=== PATIENT | female | born 1965 | race Caucasian/White ===

== ENCOUNTER 2025-05-12 12:58 | Emergency (ER) | payer OTHER, SELFPAY ==
[2025-05-12 13:21] VITALS: BP 125/94; PULSE 103; RESP 18; TEMP 36.5; O2SAT 97; BMI 32.6
--- NOTE | 2025-05-12 13:43 | ED_ITS ---
HPI - Abdominal Pain General Date Seen: 05/12/25 Chief Complaint: Abdominal Pain Stated Complaint: Lower LT Abdomen pain Time Seen by Provider: 05/12/25 13:43 Source: patient and RN notes reviewed Mode of arrival: ambulatory Limitations: no limitations History of Present Illness HPI narrative: Patricia is a very pleasant 59-year-old female. Comes to the emergency room for evaluation of left lower quadrant pain. Patient notes that a 48 hours ago she did not feel well had some mild indigestion and some abdominal discomfort but nothing localized. [place] maybe she ate some bad food. She was feeling a a little bit better yesterday but then this morning had increasing left lower quadrant pain. This is not associated with fevers chills changes in her stool or dysuria. She does have a history of kidney stones. She has known diverticulosis but has not had diverticulitis in the past. Her last colonoscopy was summer. Movement definitely increases her discomfort. She has been using ibuprofen which has helped somewhat. Related Data Home Medications ?Medication ?Instructions ?Recorded ?Confirmed amlodipine 2.5 mg tablet 2.5 mg PO DAILY 05/12/2501/27 lisinopril 20 mg tablet 40 mg PO DAILY 05/12/2501/27 Previous Rx's ?Medication ?Instructions ?Recorded hydrocodone 5 mg-acetaminophen 325 1 tab PO Q4-6H PRN pain #10 tabs 05/12/25 mg tablet Allergies Allergy/AdvReac Type Severity Reaction Status Date / Time No Known Drug Allergies Allergy Verified 05/12/25 15:07 Review of Systems Status of ROS Reports: 10 or more systems reviewed and unremarkable except as noted in History and below Const Denies: fever, chills or fatigue ENMT Denies: neck pain or nasal congestion Cardio Denies: chest pain, palpitations or shortness of breath with exertion Resp Denies: shortness of breath or cough GI Reports: abdominal pain and nausea; Denies: vomiting, diarrhea, constipation or blood in stool Denies: painful urination or urinary frequency Musculo Denies: back pain, neck pain or extremity pain Endo Denies: fatigue PFSH PFSH Social History Smoking Status: Former smoker How often do you have a drink containing alcohol: monthly or less AUDIT-C Alcohol total score: 1 Non-prescribed substance use: denies use Exam Narrative: Exam Narrative: Alert and oriented. Mentation speech is normal. Heart with regular rate and rhythm and lungs are clear. Abdomen shows tenderness left lower quadrant. No distention. I do push on the right side of the abdomen she can feel it in the left lower quadrant. Lower extremities without significant edema and she is moving all extremities without difficulty. Bowel sounds are within normal limits. Const: Vital Signs, click to edit/add: Vital Signs - 24 hr 05/12/25 13:21 05/12/25 15:25 Temperature 97.7 F Pulse Rate [Pulse Oximeter] 103 H 89 Respiratory Rate 18 18 Blood Pressure [Ri ght Upper Arm] 125/94 H 154/92 H Pulse Oximetry 97 98 Oxygen Delivery Me thod Room Air Room Air Documenting provider has reviewed patient's vital signs: yes Course Course ED Course: Differential diagnosis includes but is not limited to colitis, diverticulitis, internal hernia, kidney stone, UTI, pyelonephritis. Will obtain IV and draw labs include CBC, comprehensive, CRP, lactate. Will also obtain urinalysis and plan on abdominal CT with contrast. I do believe this most likely represents diverticulitis given her story and history here today. Vital Signs Vital signs: Initial Vital Signs Temperature 97.7 F 05/12/25 13:21 Temperature Source Temporal Artery Scan 05/12/25 13:21 Pulse Rate 103 H 05/12/25 13:21 Pulse Rhythm Regular 05/12/25 13:21 Respiratory Rate 18 05/12/25 13:21 Blood Pressure 125/94 H 05/12/25 13:21 Blood Pressure Mean 104 05/12/25 13:21 Blood Pressure Position Sitting 05/12/25 13:21 Pulse Oximetry 97 05/12/25 13:21 Oxygen Delivery Method Room Air 05/12/25 13:21 Vital Signs Temperature 97.7 F 05/12/25 13:21 Pulse Rate 103 H 05/12/25 13:21 Respiratory Rate 18 05/12/25 13:21 Blood Pressure 125/94 H 05/12/25 13:21 Pulse Oximetry 97 05/12/25 13:21 Oxygen Delivery Method Room Air 05/12/25 13:21 Temperature 97.7 F 05/12/25 13:21 Pulse Rate 89 05/12/25 15:25 Respiratory Rate 18 05/12/25 15:25 Blood Pressure 154/92 H 05/12/25 15:25 Pulse Oximetry 98 05/12/25 15:25 Oxygen Delivery Method Room Air 05/12/25 15:25 Medications Administered Medications: Discontinued Medications Generic Name Dose Route Start Last Admin Trade Name Cindi PRN Reason Stop Dose Admin Sodium Chloride 1,000 mls @ 1,000 mls/hr 05/12/25 13:48 05/12/25 15:00 0.9 % Sodium Chloride 1000 Ml IV 05/12/25 14:47 Infused .Q1H DANIE Infusion Ketorolac Tromethamine 15 mg 05/12/25 13:48 05/12/25 14:07 Ketorolac 15 Mg/Ml Inj IVP 05/12/25 13:49 15 mg ONCE ONE Administration MDM - Abdominal Pain MDM Narrative Medical decision making narrative: 1. Diverticulitis-patient with uncomplicated diverticulitis acute. Will treat with Augmentin 875 p.o. b.i.d.. Patient and her are traveling to [facility] for vacation. Instead of doing the normal 7-10 day dose I will give her 14 days dosing. I will then have her discontinue when she returns to the and I did states. I do not want her to not treat long enough and have a return or flare of diverticulitis are or put her at risk for developing complications. Pain will control will be of ibuprofen 600 mg p.o. t.i.d. p.r.n.. Patient was given Toradol 15 mg IV in the ED today. She may use [place] 5/325 1-2 tabs p.o. q.4-6 hours p.r.n. for pain not relieved by ibuprofen. Four tablets were placed through our [facility]Fine machine. A further prescription for 10 tablets was sent to her pharmacy to be used as needed. Did stress the importance of using stool softener with [place] as well as avoiding any other sedating substances such as alcohol, sedating medications. She should not drive if using a narcotic. 2. Disposition-home at this time. Seek medical attention for worsening symptoms especially fever, increasing pain and as needed. I would advise against travel if she is not improving or she has worsening symptoms. Lab Data Attestation: I reviewed the patient's lab results. Labs: Lab Results 12/08/25 12/08/25 Range/Units 13:48 14:00 WBC 11.66 H (4.50-11.00) K/uL RBC 4.92 (4.00-5.20) m/uL Hgb 15.1 (12.0-16.0) gm/dL Hct 44.2 (33.0-51.0) % MCV 90 (80-100) fL MCH 31 (26-34) pg MCHC 34 (32-36) gm/dL RDW Coeff of Elissa 11.4 L (11.5-15.5) % Plt Count 273 (140-440) K/uL Neut % (Auto) 77.0 H (42.0-72.0) % Lymph % (Auto) 11.2 L (20-44) % Mcdonough % (Auto) 9.9 (0.0-11.0) % Eos % (Auto) 1.5 (0.0-7.0) % Baso % (Auto) 0.3 (0.0-3.0) % Neut # (Auto) 9.00 H (1.7-7.0) K/uL Lymph # (Auto) 1.30 (0.90-2.90) K/uL Mcdonough # (Auto) 1.20 H (0.00-0.90) K/UL Eos # (Auto) 0.20 (0.00-0.50) K/uL Baso # (Auto) 0.00 (0.00-0.30) K/uL Abs Immat Gran (auto) 0.00 (0.00-0.30) K/uL Imm/Tot Granulo (auto) 0.1 % Sodium 137 (135-149) mmol/L Potassium 4.5 (3.6-5.1) mmol/L Chloride 100 (96-114) mmol/L Carbon Dioxide 23 (20-32) mmol/L Anion Gap 14 (7-15) mEq/L BUN 16 (7-30) mg/dL Creatinine 0.8 (0.5-1.5) mg/dL Estimated Creat Clear 51.02 Estimated GFR 84 ml/min Glucose 108 (60-115) mg/dL Lactate 1.2 (0.5-1.9) mmol/L Calcium 9.1 (8.4-10.6) mg/dL Total Bilirubin 0.6 (0.1-1.5) mg/dL AST 26 (12-35) U/L ALT 24 (4-35) U/L Alkaline Phosphatase 96 (40-150) U/L C-Reactive Protein < 0.5 L (0.5-1.0) mg/dL Total Protein 8.0 (6.0-8.3) g/dL Albumin 4.7 (3.3-5.0) g/dL Urine Color Yellow (Yellow) Urine Appearance Clear (Clear) Urine pH 5.5 (5.0-8.5) Ur Specific [place] 1.010 (1.000-1.030) Urine Protein Negative (Negative) Urine Glucose (UA) Negative (Negative) Urine Ketones Negative (Negative) Urine Blood Trace-intact A (Negative) Urine Nitrite Negative (Negative) Urine Bilirubin Negative (Negative) Urine Urobilinogen 0.2 (0.2-1.0) Ur Leukocyte Esterase Negative (Negative) Urine RBC 0-2 (0-2) Urine WBC 0-2 (0-5) Ur Squamous Epith Cells None (None-Few) Urine Bacteria None (None) Imaging Data CT scan - abdomen: Attestation: I have reviewed the pertinent imaging results. My impression: Diverticulitis Radiologist's impression: FINDINGS: LUNG BASES: The lung bases as visualized appear normal.The heart size is normal at the lung bases. Small hiatal hernia LIVER/BILIARY SYSTEM:The liver is normal in size and configuration. There is no focal mass and there is no intra- or extra hepatic biliary ductal dilatation.Hepatic steatosis. Distended but otherwise unremarkable appearing gallbladder. ADRENALS: Normal KIDNEYS, URETERS and BLADDER:The kidneys appear normal. No visible mass, calculus or hydronephrosis. The ureters and bladder as visualized appear normal. SPLEEN:Normal appearance. PANCREAS: Appears normal. RETROPERITONEUM and MESENTERY: There is no mass, adenopathy or aortic aneurysm. GASTROINTESTINAL SYSTEM: Stomach and small bowel appear normal. There is fecal retention. No mechanical obstruction. There is diverticulosis diffusely. There are findings of acute uncomplicated sigmoid diverticulitis. This involves a relatively long segment of the sigmoid with moderate surrounding inflammatory change and a small amount of circumferential surrounding fluid but no collection or free air. PELVIS: No mass or adenopathy observed. OSSEOUS STRUCTURES and ABDOMINAL WALL: There is an age-appropriate appearance of the osseous structures.No significant abdominal wall defect. OTHER: No free fluid or free air. IMPRESSION: 1. Acute uncomplicated sigmoid diverticulitis. A relatively long segment of the sigmoid colon is involved with moderate surrounding inflammatory change and a small amount of circumferential surrounding fluid but no collection or free air at this time. 2. Other nonacute findings as above Discharge Plan Discharge Clinical Impression: Diverticulitis Patient Disposition: Home, Self-Care Condition: Improved Additional Instructions: Start Augmentin for treatment of diverticulitis today. I did give you a 14 day supply but you may discontinue this medication as long as you have had it for at least 7 days after your return from [facility]. This is in our InSt[facility] meds machine. Push fluids. For pain you may use ibuprofen 600 mg every 8 hours. For pain not relieved by ibuprofen [place] also known as Vicodin is a combination medication of the high narcotic hydrocodone and Tylenol. You would not want to use alcohol if using this medication or should you be driving. Please to not use this medicine with any other sedating medications. A small amount of [place] was given in our InStent meds machine. I did send further medicines to the pharmacy in the event that you need more than 4 tablets. Suggest stool softener if using [place]. Return to the ER for fever, worsening pain and as needed. Prescriptions: New hydrocodone-acetaminophen 5-325 mg tablet 1 tab PO Q4-6H PRN (Reason: pain) Qty: 10 0RF No Action lisinopril 20 mg tablet 40 mg PO DAILY amlodipine 2.5 mg tablet 2.5 mg PO DAILY Follow Up/Referrals: Tristin Montenegro MD [Primary Care Provider, Family Practice] Stand Alone Forms: [facility] Info Instructions
--- NOTE | 2025-05-12 13:48 | CRLHL7_ITS ---
For Patients: As a result of the Century Cures Act, medical imaging exams and procedure reports are released immediately into your electronic medical record. You may view this report before your referring provider. If you have questions, please contact your health care provider. INDICATION: Left lower quadrant abdominal pain COMPARISON: None TECHNIQUE: CT examination of the abdomen and pelvis was performed following the uneventful intravenous administration of 93 cc of Isovue 370. Thin section axial images were obtained from the lung bases through the pubic symphysis. Oral contrast was not administered. Please note that all CT scans at this facility use dose modulation, iterative reconstruction, and/or weight-based dosing when appropriate to reduce radiation dose to as low as reasonably achievable. FINDINGS: LUNG BASES: The lung bases as visualized appear normal.The heart size is normal at the lung bases. Small hiatal hernia LIVER/BILIARY SYSTEM:The liver is normal in size and configuration. There is no focal mass and there is no intra- or extra hepatic biliary ductal dilatation.Hepatic steatosis. Distended but otherwise unremarkable appearing gallbladder. ADRENALS: Normal KIDNEYS, URETERS and BLADDER:The kidneys appear normal. No visible mass, calculus or hydronephrosis. The ureters and bladder as visualized appear normal. SPLEEN:Normal appearance. PANCREAS: Appears normal. RETROPERITONEUM and MESENTERY: There is no mass, adenopathy or aortic aneurysm. GASTROINTESTINAL SYSTEM: Stomach and small bowel appear normal. There is fecal retention. No mechanical obstruction. There is diverticulosis diffusely. There are findings of acute uncomplicated sigmoid diverticulitis. This involves a relatively long segment of the sigmoid with moderate surrounding inflammatory change and a small amount of circumferential surrounding fluid but no collection or free air. PELVIS: No mass or adenopathy observed. OSSEOUS STRUCTURES and ABDOMINAL WALL: There is an age-appropriate appearance of the osseous structures.No significant abdominal wall defect. OTHER: No free fluid or free air. IMPRESSION: 1. Acute uncomplicated sigmoid diverticulitis. A relatively long segment of the sigmoid colon is involved with moderate surrounding inflammatory change and a small amount of circumferential surrounding fluid but no collection or free air at this time. 2. Other nonacute findings as above Please note that all CT scans at this facility use dose modulation, iterative reconstruction, and/or weight-based dosing when appropriate to reduce radiation dose to as low as reasonably achievable. Dictated by Umair Coe MD @ 05/12/2025 3:18:38 PM (Electronically Signed)
[2025-05-12 14:13] LABS: Lactate* 1.2 mmol/L (0.5-1.9)
[2025-05-12 14:19] LABS: Appearance Urine Clear (Clear)
[2025-05-12 14:21] LABS: Hematocrit* 44.2 % (33.0-51.0); Hemoglobin* 15.1 gm/dL (12.0-16.0); Immature Granulocytes Pct Auto 0.1 %; Mean Corpuscular HGB Conc 34 gm/dL (32-36); Mean Corpuscular Hemoglobin 31 pg (26-34); Mean Corpuscular Volume 90 fL (80-100); RDW Coefficient of Variation % 11.4 % (11.5-15.5); Red Blood Count* 4.92 m/uL (4.00-5.20); White Blood Count* 11.66 K/uL (4.50-11.00)
[2025-05-12 14:25] LABS: Immature Granulocytes Abs Auto 0.00 K/uL (0.00-0.30); Lymphocytes Absolute Auto 1.30 K/uL (0.90-2.90); Slide Review Reflex No
[2025-05-12 14:33] LABS: Chloride* 100 mmol/L (96-114)
[2025-05-12 14:34] LABS: Albumin* 4.7 g/dL (3.3-5.0); Potassium* 4.5 mmol/L (3.6-5.1); Sodium* 137 mmol/L (135-149)
[2025-05-12 14:36] LABS: Blood Urea Nitrogen* 16 mg/dL (7-30); Creatinine* 0.8 mg/dL (0.5-1.5); Est. Creatinine Clearance* 51.02; Estimated Glomerular Filt Rate 84 ml/min
[2025-05-12 14:37] LABS: Alanine Aminotransferase* 24 U/L (4-35); Alkaline Phosphatase* 96 U/L (40-150); Anion Gap 14 mEq/L (7-15); Aspartate Amino Transferase* 26 U/L (12-35); Bilirubin Total* 0.6 mg/dL (0.1-1.5); Calcium* 9.1 mg/dL (8.4-10.6); Carbon Dioxide* 23 mmol/L (20-32); Glucose* 108 mg/dL (60-115); Total Protein* 8.0 g/dL (6.0-8.3)
[2025-05-12 15:25] VITALS: BP 154/92; PULSE 89; RESP 18; O2SAT 98
== END 2025-05-12 15:46 | disposition home or self-care (01) ==
PROVIDERS: Emergency Provider Family Medicine; PCP Family Medicine
DX: K57.32 Diverticulitis of large intestine without perforation or abscess without bleeding (principal)
CPT/HCPCS: 36415; 74177; 80053; 81001; 83605; 85025; 86140; 96374; 99284; 99285; J1885; J7030; Q9967